=== PATIENT | female | born 1955 ===

== ENCOUNTER 2018-04-30 14:07 | Emergency (ER) | payer MEDICAID, OTHER ==
[2018-04-30 14:33] VITALS: O2SAT 98
--- NOTE | 2018-04-30 15:24 | ED PDOC ---
HPI: Back Time Seen by Provider: 04/30/18 15:07 Chief Complaint (Nursing): Abdominal Pain Chief Complaint (Provider): headache and back pain History Per: Patient History/Exam Limitations: no limitations Onset/Duration Of Symptoms: Days (x1) Current Symptoms Are (Timing): Still Present Quality Of Discomfort: "Pain" Exacerbating Factor(s): Other (ambulation) Additional Complaint(s): Jen Santos is a 62 year old female, with a past history of nephrectomy and cholecystectomy, who presents to the emergency department complaining of an upper back pain since yesterday and an intermittent headache ongoing for x1 week. Patient states she had a trouble sleeping last night due to headache but it improved after placing a wet towel across her forehead. Patient states the back pain is exacerbated with ambulation. She did not take any medication for pain. Patient also reports a generalized weakness and an intermittent right sided abdominal discomfort but states she has been taking Omeprazole with relief of discomfort. She denies any fever, chills, numbness or weakness. No further medical complaints. PMD: Dr. Yohan Watkins Past Medical History Reviewed: Historical Data, Nursing Documentation, Vital Signs Vital Signs: Last Vital Signs Temp 99.8 F H 04/30/18 14:30 Pulse 72 04/30/18 14:30 Resp 16 04/30/18 14:30 BP 149/80 04/30/18 14:30 Pulse Ox 98 04/30/18 14:30 - Medical History PMH: Hypothyroidism - Surgical History Surgical History: Cholecystectomy Other surgeries: nephrectomy, uterus malformation repair - Family History Family History: States: Unknown Family Hx - Immunization History Hx Tetanus Toxoid Vaccination: No Hx Influenza Vaccination: No Hx Pneumococcal Vaccination: No - Home Medications Home Medications: Ambulatory Orders Medication Instructions Recorded Alendronate [Fosamax] 70 mg PO QD7 09/04/15 Ibuprofen [Motrin] 600 mg PO Q6 #20 tab 09/04/15 Levothyroxine [Synthroid] 50 mcg PO DAILY 09/04/15 Ibuprofen [Motrin] 600 mg PO Q6H PRN #20 tab 04/30/18 - Allergies Allergies/Adverse Reactions: Allergies Allergy/AdvReac Type Severity Reaction Status Date / Time No Known Allergies Allergy Verified 04/30/18 14:29 Review of Systems ROS Statement: Except As Marked, All Systems Reviewed And Found Negative Constitutional: Positive for: Weakness (generalized weakness). Negative for: Fever, Chills Gastrointestinal: Negative for: Abdominal Pain (resolved) Musculoskeletal: Positive for: Back Pain (upper) Neurological: Positive for: Headache. Negative for: Weakness, Numbness Physical Exam - Reviewed Nursing Documentation Reviewed: Yes Vital Signs Reviewed: Yes - Physical Exam Appears: Positive for: Non-toxic Head Exam: Positive for: ATRAUMATIC, NORMOCEPHALIC Skin: Positive for: Normal Color, Warm, Dry Eye Exam: Positive for: Normal appearance, EOMI, PERRL Neck: Positive for: Painless ROM, Supple Cardiovascular/Chest: Positive for: Regular Rate, Rhythm. Negative for: Murmur Respiratory: Positive for: Normal Breath Sounds. Negative for: Respiratory Distress Gastrointestinal/Abdominal: Positive for: Normal Exam, Soft. Negative for: Tenderness (right or left side), Guarding, Rebound Back: Positive for: Normal Inspection (No upper back tenderness). Negative for : L CVA Tenderness, R CVA Tenderness, Vertebral Tenderness Extremity: Positive for: Normal ROM (upper and lower extremity). Negative for: Deformity, Swelling Neurologic/Psych: Positive for: Alert, Oriented, Gait (steady). Negative for: Motor/Sensory Deficits - Laboratory Results Result Diagrams: 04/30/18 15:40 04/30/18 15:40 - ECG O2 Sat by Pulse Oximetry: 98 (RA) Pulse Ox Interpretation: Normal Medical Decision Making Medical Decision Making: Time: 15:07 Initial Impression: upper back pain and headache Initial Plan: --Head w/o contrast [CT] --CMP --Urine dipstick --CBC w/ differential --Chest two views (PA/LAT) [RAD] --Morphine 2 mg IV --Urinalysis --Reevaluation 15:48 CXR FINDINGS: LUNGS: No active pulmonary disease. PLEURA: No significant pleural effusion identified. No pneumothorax apparent. CARDIOVASCULAR: No radiographic findings to suggest acute or significant cardiovascular disease. OSSEOUS STRUCTURES: No significant abnormalities. VISUALIZED UPPER ABDOMEN: Normal. OTHER FINDINGS: None. IMPRESSION: No active disease. Accession No. 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 HISTORY: JETT COMPARISON: None available. TECHNIQUE: Axial computed tomography images were obtained through the head/brain without intravenous contrast. Radiation dose: Total exam DLP = 800.42 mGy-cm. This CT exam was performed using one or more of the following dose reduction techniques: Automated exposure control, adjustment of the mA and/or kV according to patient size, and/or use of iterative reconstruction technique. FINDINGS: HEMORRHAGE: No acute parenchymal, subarachnoid or extra-axial hemorrhage. BRAIN: Minimal chronic periventricular white matter ischemic changes. Additionally, there are scattered small focal areas of low-attenuation scattered about the subcortical white matter both cerebral hemispheres consistent with sequela of chronic small vessel disease. Questionable tiny chronic appearing lacunar type infarct anterior limb left internal capsule. . No obvious parenchymal nor extra-axial mass or collection seen on this noncontrast study. Mild generalized volume loss VENTRICLES: No obstructive hydrocephalus. CALVARIUM: No acute calvarial fractures PARANASAL SINUSES: Unremarkable as visualized. No significant inflammatory changes. MASTOID AIR CELLS: Unremarkable as visualized. No inflammatory changes. OTHER FINDINGS: Orbits and contents unremarkable IMPRESSION: Minimal chronic periventricular white matter ischemic changes. Additionally, there are scattered small focal areas of low-attenuation scattered about the subcortical white matter both cerebral hemispheres consistent with sequela of chronic small vessel disease. Questionable tiny chronic appearing lacunar type infarct anterior limb left internal capsule. . Mild generalized volume loss. Scribe Attestation: Documented by Socrates Birmingham acting as a scribe for Deborah Catalan MD. MD Null Attestation: All medical record entries made by the Scribe were at my direction and personally dictated by me. I have reviewed the chart and agree that the record accurately reflects my personal performance of the history, physical exam, medical decision making, and the department course for this patient. I have also personally directed, reviewed, and agree with the discharge instructions and disposition. Disposition - Clinical Impression Clinical Impression: Myalgia, Headache - Disposition Referrals: Yohan Watkins MD [Family Provider] - Disposition: Routine/Home Disposition Time: 17:30 Condition: IMPROVED Prescriptions: Ibuprofen [Motrin] 600 mg PO Q6H PRN #20 tab PRN Reason: Pain, Moderate (4-7) Instructions: Headache, Adult, Muscle and Bone Pain (DC) Forms: [employer] ([place]ian) Print Language: ESTONIAN
[2018-04-30 15:52] LABS: BASO % 0.9 % (0.0-2.0); EOS % 0.9 % (0.0-4.0); HEMOGLOBIN 13.6 g/dL (12.0-16.0); LYMPH # 1.2 K/uL (1.0-4.3); LYMPH % 29.5 % (20.0-40.0); MEAN CELL VOLUME 95.9 fl (81.0-99.0); MEAN CORPUSCULAR HEMOGLOBIN 32.1 pg (27.0-31.0); MEAN CORPUSCULAR HGB CONC 33.5 g/dL (33.0-37.0); MEAN PLATELET VOLUME 7.4 fl (7.2-11.7); MONO # 0.4 K/uL (0.0-0.8); MONO % 8.7 % (0.0-10.0); NEUT # 2.4 K/uL (1.8-7.0); NRBC % 0.1 % (0.0-0.0); RBC 4.25 Mil/uL (3.80-5.20); RED CELL DISTRIBUTION WIDTH 12.8 % (11.5-14.5)
[2018-04-30 15:53] LABS: URINE BILIRUBIN NEGATIVE (NEGATIVE); URINE BLOOD SMALL (NEGATIVE); URINE CLARITY CLEAR (Clear); URINE COLOR STRAW (YELLOW); URINE GLUCOSE (UA) NEG (Normal); URINE LEUKOCYTE ESTERASE NEG Leu/uL (Negative); URINE PROTEIN NEGATIVE (NEGATIVE); URINE UROBILINOGEN 0.2-1.0 mg/dL (0.2-1.0)
[2018-04-30 16:24] LABS: CALCIUM 9.4 mg/dL (8.4-10.2); GFR AFRICAN-AMERICAN > 60; GFR NON-AFRICAN AMERICAN > 60
[2018-04-30 16:28] LABS: ALBUMIN 4.6 g/dL (3.5-5.0); ALT/SGPT 20 U/L (9-52); AST/SGOT 40 U/L (14-36); BLOOD UREA NITROGEN 9 mg/dl (7-17)
--- NOTE | 2018-04-30 16:29 | RAD ---
HISTORY: Back pain COMPARISON: No prior. TECHNIQUE: Chest PA and lateral FINDINGS: LUNGS: No active pulmonary disease. PLEURA: No significant pleural effusion identified. No pneumothorax apparent. CARDIOVASCULAR: No radiographic findings to suggest acute or significant cardiovascular disease. OSSEOUS STRUCTURES: No significant abnormalities. VISUALIZED UPPER ABDOMEN: Normal. OTHER FINDINGS: None. IMPRESSION: No active disease.
--- NOTE | 2018-04-30 17:01 | CT ---
PROCEDURE: CT HEAD WITHOUT CONTRAST. HISTORY: JETT COMPARISON: None available. TECHNIQUE: Axial computed tomography images were obtained through the head/brain without intravenous contrast. Radiation dose: Total exam DLP = 800.42 mGy-cm. This CT exam was performed using one or more of the following dose reduction techniques: Automated exposure control, adjustment of the mA and/or kV according to patient size, and/or use of iterative reconstruction technique. FINDINGS: HEMORRHAGE: No acute parenchymal, subarachnoid or extra-axial hemorrhage. BRAIN: Minimal chronic periventricular white matter ischemic changes. Additionally, there are scattered small focal areas of low-attenuation scattered about the subcortical white matter both cerebral hemispheres consistent with sequela of chronic small vessel disease. Questionable tiny chronic appearing lacunar type infarct anterior limb left internal capsule. . No obvious parenchymal nor extra-axial mass or collection seen on this noncontrast study. Mild generalized volume loss VENTRICLES: No obstructive hydrocephalus. CALVARIUM: No acute calvarial fractures PARANASAL SINUSES: Unremarkable as visualized. No significant inflammatory changes. MASTOID AIR CELLS: Unremarkable as visualized. No inflammatory changes. OTHER FINDINGS: Orbits and contents unremarkable IMPRESSION: Minimal chronic periventricular white matter ischemic changes. Additionally, there are scattered small focal areas of low-attenuation scattered about the subcortical white matter both cerebral hemispheres consistent with sequela of chronic small vessel disease. Questionable tiny chronic appearing lacunar type infarct anterior limb left internal capsule. . Mild generalized volume loss.
[2018-04-30 18:21] VITALS: BP 119/75
[2018-04-30 19:23] VITALS: PULSE 77; RESP 17; TEMP 100.2
== END 2018-04-30 19:15 | disposition home or self-care (01) ==
LOC: H.ER 14:07
DX: R51 Headache (principal); M79.1 Myalgia; E03.9 Hypothyroidism, unspecified; Z90.49 Acquired absence of other specified parts of digestive tract; Z90.5 Acquired absence of kidney